=== PATIENT | male | born 1970 | race Caucasian/White ===

== ENCOUNTER 2017-09-14 16:18 | Emergency (ER) | payer BC, SELFPAY ==
--- NOTE | 2017-09-14 16:36 | EDM.PDOC ---
ED HPI GENERAL MEDICAL PROBLEM - General Chief Complaint: Chest Pain Stated Complaint: EKG Time Seen by Provider: 09/14/17 16:27 Source of Information: Reports: Patient History Limitations: Reports: No Limitations - History of Present Illness INITIAL COMMENTS - FREE TEXT/NARRATIVE: History of present illness: []Patient's been having 2 days of sharp pains from the mid back radiating to his right shoulder back 20 minutes in duration not associated with shortness of breath, sweating, lightheadedness or dizziness. Seen a [facility] and had EKG and was sent to the ER for reevaluation under repeat EKG. Review of systems: As per history of present illness and below otherwise all systems reviewed and negative. Past medical history: As per history of present illness and as reviewed below otherwise noncontributory. Surgical history: As per history of present illness and as reviewed below otherwise noncontributory. Social history: No reported history of drug or alcohol abuse. Family history: As per history of present illness and as reviewed below otherwise noncontributory. Physical exam: General: Well developed, well nourished in NAD HEENT: Atraumatic, normocephalic, pupils reactive, negative for conjunctival pallor or scleral icterus, mucous membranes moist, throat clear, neck supple, nontender, trachea midline. Lungs: Clear to auscultation, breath sounds equal bilaterally, chest nontender. Heart: S1S2, regular, negative for clicks, rubs, or JVD. Abdomen: Soft, nondistended, nontender. Negative for masses or hepatosplenomegaly. Negative for costovertebral tenderness. Pelvis: Stable nontender. Genitourinary: Deferred. Rectal: Deferred. Extremities: Atraumatic, negative for cords or calf pain. Neurovascular unremarkable. Neuro: Awake, alert, oriented. Cranial nerves II through XII unremarkable. Cerebellum unremarkable. Motor and sensory unremarkable throughout. Exam nonfocal. Diagnostics: [] Therapeutics: [] Impression: [] Plan: [] Definitive disposition and diagnosis as appropriate pending reevaluation and review of above. - Related Data Allergies Allergy/AdvReac Type Severity Reaction Status Date / Time No Known Allergies Allergy Verified 09/14/17 16:32 Home Meds: Home Meds . [No Known Home Meds] 09/14/17 [History] ED ROS GENERAL - Review of Systems Review Of Systems: See Below (See history of present illness) ED EXAM, GENERAL - Physical Exam Exam: See Below (See history of present illness) Course - Vital Signs Last Recorded V/S: Last Vital Signs Temp 98 F 09/14/17 16:18 Pulse 65 09/14/17 16:18 Resp 18 09/14/17 16:18 BP 116/82 09/14/17 16:18 Pulse Ox 97 09/14/17 16:18 - Orders/Labs/Meds Orders: Active Orders 24 hr Category Date Time Status EKG Documentation Completion [RC] STAT Care 09/14/17 16:41 Active Labs: Laboratory Tests 09/14/17 09/14/17 Range/Units 16:50 16:50 WBC 7.42 (4.0-11.0) K/uL RBC 4.82 (4.50-5.90) M/uL Hgb 15.9 (13.0-17.0) g/dL Hct 45.3 (38.0-50.0) % MCV 94.0 (80.0-98.0) fL MCH 33.0 H (27.0-32.0) pg MCHC 35.1 (31.0-37.0) g/dL RDW Std Deviation 45.0 (28.0-62.0) fl RDW Coeff of Jace 13 (11.0-15.0) % Plt Count 203 (150-400) K/uL MPV 9.80 (7.40-12.00) fL Neut % (Auto) 63.0 (48.0-80.0) % Lymph % (Auto) 26.7 (16.0-40.0) % [place] % (Auto) 9.3 (0.0-15.0) % Eos % (Auto) 0.7 (0.0-7.0) % Baso % (Auto) 0.3 (0.0-1.5) % Neut # (Auto) 4.7 (1.4-5.7) K/uL Lymph # (Auto) 2.0 (0.6-2.4) K/uL [place] # (Auto) 0.7 (0.0-0.8) K/uL Eos # (Auto) 0.1 (0.0-0.7) K/uL Baso # (Auto) 0.0 (0.0-0.1) K/uL Nucleated RBC % 0.0 /100WBC Nucleated RBCs # 0 K/uL Sodium 140 (136-146) mmol/L Potassium 3.9 (3.5-5.1) mmol/L Chloride 111 H (98-110) mmol/L Carbon Dioxide 19 L (21-31) mmol/L BUN 18 (6.0-23.0) mg/dL Creatinine 0.8 (0.6-1.5) mg/dL Est Cr Clr Drug Dosing TNP Estimated GFR (MDRD) > 60.0 ml/min Glucose 107 (60-110) mg/dL Calcium 9.3 (8.8-10.8) mg/dL Total Bilirubin 0.4 (0.1-1.5) mg/dL AST 21 (5-40) IU/L ALT 24 (8-54) IU/L Alkaline Phosphatase 80 (40-150) Troponin I < 0.10 (0.0-0.29) NG/ML Total Protein 7.0 (6.0-8.0) g/dL Albumin 3.9 (3.5-5.0) g/dL Globulin 3.1 (2.0-3.5) g/dL Albumin/Globulin Ratio 1.3 (1.3-2.8) Meds: Medications Discontinued Medications Generic Name Dose Route Start Last Admin Trade Name Freq PRN Reason Stop Dose Admin Aspirin 324 mg 09/14/17 16:42 09/14/17 17:05 Aspirin PO 09/14/17 16:43 Not Given ONETIME ONE Sodium Chloride 10 ml 09/14/17 16:40 Saline Flush FLUSH ASDIRECTED PRN Keep Vein Open Sodium Chloride 2.5 ml 09/14/17 16:40 Saline Flush FLUSH ASDIRECTED PRN Keep Vein Open Departure - Departure Time of Disposition: 17:35 Disposition: Home, Self-Care 01 Condition: Good Clinical Impression: Back pain Qualifiers: Back pain location: thoracic back pain Chronicity: chronic Back pain laterality : midline Qualified Code(s): M54.6 - Pain in thoracic spine; G89.29 - Other chronic pain; G89.29 - Other chronic pain Forms: ED Department Discharge Additional Instructions: The following information is given to patients seen in the emergency department who are being discharged to home. This information is to outline your options for follow-up care. We provide all patients seen in our emergency department with a follow-up referral. The need for follow-up, as well as the timing and circumstances, are variable depending upon the specifics of your emergency department visit. If you don't have a primary care physician on staff, we will provide you with a referral. We always advise you to contact your personal physician following an emergency department visit to inform them of the circumstance of the visit and for follow-up with them and/or the need for any referrals to a consulting specialist. The emergency department will also refer you to a specialist when appropriate. This referral assures that you have the opportunity for follow-up care with a specialist. All of these measure are taken in an effort to provide you with optimal care, which includes your follow-up. Under all circumstances we always encourage you to contact your private physician who remains a resource for coordinating your care. When calling for follow-up care, please make the office aware that this follow-up is from your recent emergency room visit. If for any reason you are refused follow-up, please contact the [facility] Emergency Department at and asked to speak to the emergency department charge nurse. Take a baby aspirin a day follow-up with primary care physician return if symptoms worsen or change [facility] [address] [place] [id number] - My Orders Last 24 Hours: My Active Orders 09/14/17 16:41 EKG Documentation Completion [RC] STAT - Assessment/Plan Last 24 Hours: My Active Orders 09/14/17 16:41 EKG Documentation Completion [RC] STAT
[2017-09-14] MEDS ORDERED: Sodium Chloride 0.9% 2.5 ML Syringe FLUSH PRN (16:40)
[2017-09-14] MEDS ORDERED: Sodium Chloride 0.9% 10 ML Syringe FLUSH PRN (16:40)
[2017-09-14] MEDS ORDERED: Aspirin 81 MG Tab.Chew PO ONE (16:42)
[2017-09-14 17:19] LABS: CHLORIDE,CL 111 mmol/L (98-110); SODIUM,NA 140 mmol/L (136-146)
== END 2017-09-14 17:51 | disposition home or self-care (01) ==
LOC: MW.ED 16:18
DX: M54.6 Pain in thoracic spine (principal); G89.29 Other chronic pain
CPT/HCPCS: 36415; 80053; 84484; 85025; 93005; 99282; 99285-25

== ENCOUNTER 2019-07-04 08:48 | Day surgery (SDC) | payer OTHER ==
[~2019-07-04 08:48] MED LIST: Lactated Ringers 1,000 ML IV SCH; Sodium Chloride 0.9% 10 ML SDV IV PRN; Sodium Chloride 0.9% 10 ML Syringe FLUSH PRN; Sodium Chloride 0.9% 2.5 ML Syringe FLUSH PRN; ceFAZolin 2 GM in Premix Bag 1 BAG IV ONE
--- NOTE | 2019-07-04 10:31 | PCM.PREANE ---
Preanesthetic Assessment - Anesthesia/Transfusion/Family Hx Anesthesia History: Prior Anesthesia Without Reaction Family History of Anesthesia Reaction: No Transfusion History: No Prior Transfusion(s) - Review of Systems General: No Symptoms Pulmonary: No Symptoms Cardiovascular: No Symptoms Gastrointestinal: No Symptoms Neurological: No Symptoms - Physical Assessment Vital Signs: Last Vital Signs Temp 98.2 F 07/04/19 09:10 Pulse 67 07/04/19 09:10 Resp 15 07/04/19 09:10 BP 126/89 07/04/19 09:10 Pulse Ox 99 07/04/19 09:10 Height: 5 ft 11 in Weight: 127.006 kg ASA Class: 3 Mental Status: Alert & Oriented x3 Airway Class: Mallampati = 2 Dentition: Reports: Normal Dentition ROM/Head Extension: Full Lungs: Clear to Auscultation, Normal Respiratory Effort Cardiovascular: Regular Rate, Regular Rhythm - Allergies Allergies/Adverse Reactions: Allergies Allergy/AdvReac Type Severity Reaction Status Date / Time latex Allergy Rash Verified 07/03/19 16:05 - Blood Blood Available: No - Anesthesia Plan Pre-Op Medication Ordered: None - Acknowledgements Anesthesia Type Planned: General Anesthesia Pt an Appropriate Candidate for the Planned Anesthesia: Yes Alternatives and Risks of Anesthesia Discussed w Pt/Guardian: Yes Pt/Guardian Understands and Agrees with Anesthesia Plan: Yes Additional Comments: PMH: aneurysm or L main coronary artery, 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, normal EF, hx of parox afib- on asa, anxiety, migraine PLAN: get PreAnesthesia Questionnaire - Past Health History Medical/Surgical History: Denies Medical/Surgical History HEENT History: Reports: None Cardiovascular History: Reports: None Respiratory History: Reports: None Gastrointestinal History: Reports: None Genitourinary History: Reports: Renal Calculus Neurological History: Reports: Migraines Psychiatric History: Reports: None Endocrine/Metabolic History: Reports: Obesity/BMI 30+ Hematologic History: Reports: None Immunologic History: Reports: None Oncologic (Cancer) History: Reports: None Dermatologic History: Reports: None - Past Surgical History Head Surgeries/Procedures: Reports: None HEENT Surgical History: Reports: Naso-Sinus Surgery Other HEENT Surgeries/Procedures: hx septoplasty Cardiovascular Surgical History: Reports: None Respiratory Surgical History: Reports: None GI Surgical History: Reports: Appendectomy Male Surgical History: Reports: Lithotripsy (ESWL) Endocrine Surgical History: Reports: None Neurological Surgical History: Reports: None Musculoskeletal Surgical History: Reports: Other (See Below) Other Musculoskeletal Surgeries/Procedures:: left radial sx (osteotomy with plate insertion) Oncologic Surgical History: Reports: None Dermatological Surgical History: Reports: None - SUBSTANCE USE Smoking Status *Q: Former Smoker Tobacco Use Within Last Twelve Months: No Recreational Drug Use History: No - HOME MEDS Home Medications: Home Meds ALPRAZolam [Alprazolam] 0.5 mg PO ASDIRECTED PRN 07/03/19 [History] Aspirin [Halfprin] 81 mg PO DAILY 07/03/19 [History] Rizatriptan Benzoate [Rizatriptan] 10 mg SL ASDIRECTED PRN 07/03/19 [History] Tamsulosin HCl 0.4 mg PO DAILY 07/03/19 [History] atorvaSTATin Calcium [Atorvastatin Calcium] 20 mg PO DAILY 07/03/19 [History] - CURRENT (IN HOUSE) MEDS Current Meds: Current Medications Lactated Ringer's (Ringers, Lactated) 1,000 mls @ 100 mls/hr IV ASDIRECTED LOGAN Sodium Chloride (Saline Flush) 10 ml FLUSH ASDIRECTED PRN PRN Reason: Keep Vein Open Sodium Chloride (Saline Flush) 2.5 ml FLUSH ASDIRECTED PRN PRN Reason: Keep Vein Open Sodium Chloride (Normal Saline) 10 ml IV ASDIRECTED PRN PRN Reason: IV Use Discontinued Medications Cefazolin Sodium/Dextrose 2 gm (/ Premix) 50 mls @ 100 mls/hr IV ONCALL ONE Stop: 07/04/19 00:30
[2019-07-04] MEDS ORDERED: Midazolam 1 MG/ML 2 ML SDV ONE (11:01)
[2019-07-04] MEDS ORDERED: fentaNYL 100 MCG/2 ML SDV ONE (11:02)
[2019-07-04] MEDS ORDERED: Propofol 200 MG/20 ML SDV ONE (11:02)
[2019-07-04] MEDS ORDERED: Lidocaine 2% 5 ML SDV ONE (11:02)
[2019-07-04] MEDS ORDERED: Rocuronium 100 MG/10 ML Syringe ONE (11:03)
[2019-07-04] MEDS ORDERED: ceFAZolin/Dextrose,Iso-Osmotic 2 GM/50 ML Duplex Bag IV ONE (11:07)
[2019-07-04] MEDS ORDERED: Iopamidol 408 MG/ML 50 ML SDV ONE (11:14)
[2019-07-04] MEDS ORDERED: Ondansetron 4 MG/2 ML SDV ONE (11:57)
[2019-07-04] MEDS ORDERED: Ketorolac 30 MG/ML SDV ONE (11:58)
[2019-07-04] MEDS ORDERED: Sugammadex Sodium 200 MG/2 ML VIAL ONE ×2 (11:59→13:05)
[2019-07-04] MEDS ORDERED: Albuterol 0.083% 2.5 MG/3 ML Neb Soln NEB PRN (13:02)
[2019-07-04] MEDS ORDERED: Atropine 0.1 MG/ML 10 ML Syringe IVPUSH PRN ×2 (13:02)
[2019-07-04] MEDS ORDERED: fentaNYL 100 MCG/2 ML SDV IVPUSH PRN (13:02)
[2019-07-04] MEDS ORDERED: 50% Dextrose in Water 50 ML Syringe IVPUSH PRN (13:02)
[2019-07-04] MEDS ORDERED: EPINEPHrine 1:10,000 1 MG/10 ML Syringe IVPUSH PRN (13:02)
[2019-07-04] MEDS ORDERED: Naloxone 0.4 MG/ML Syringe IVPUSH PRN (13:02)
[2019-07-04] MEDS ORDERED: ALPRAZolam 0.5 MG Tab PO PRN (13:07)
[2019-07-04] MEDS ORDERED: Rizatriptan Benzoate [Rizatriptan] 10 MG PO PRN (13:07)
--- NOTE | 2019-07-04 13:34 | PCM.POSTAN ---
POST ANESTHESIA ASSESSMENT - MENTAL STATUS Mental Status: Alert, Oriented - VITAL SIGNS Vital Signs: Last Vital Signs Temp 97.9 F 07/04/19 13:10 Pulse 72 07/04/19 13:25 Resp 16 07/04/19 13:25 BP 135/73 07/04/19 13:25 Pulse Ox 95 07/04/19 13:25 - RESPIRATORY Respiratory Status: Respiratory Rate WNL, Airway Patent, O2 Saturation Stable - CARDIOVASCULAR CV Status: Pulse Rate WNL, Blood Pressure Stable - GASTROINTESTINAL GI Status: No Symptoms - POST OP HYDRATION Hydration Status: Adequate & Stable
--- NOTE | 2019-07-04 13:34 | PCM48HPAN ---
Post Anesthesia Note - EVALUATION WITHIN 48HRS OF ANESTHETIC Vital Signs in Normal Range: Yes Patient Participated in Evaluation: Yes Respiratory Function Stable: Yes Airway Patent: Yes Cardiovascular Function Stable: Yes Hydration Status Stable: Yes Pain Control Satisfactory: Yes Nausea and Vomiting Control Satisfactory: Yes Mental Status Recovered: Yes Vital Signs: Last Vital Signs Temp 97.9 F 07/04/19 13:10 Pulse 72 07/04/19 13:25 Resp 16 07/04/19 13:25 BP 135/73 07/04/19 13:25 Pulse Ox 95 07/04/19 13:25
--- NOTE | 2019-07-04 14:28 | OR ---
SURGEON: Armando Avery M.D. DATE OF PROCEDURE: 07/04/2019 PREOPERATIVE DIAGNOSIS: An 8 mm right upper ureteral stone. POSTOPERATIVE DIAGNOSIS: An 8 mm right upper ureteral stone. OPERATIONS: Ureteroscopy, laser lithotripsy, and double-J stent placement. DESCRIPTION OF PROCEDURE: The patient was given general anesthesia, placed in dorsal lithotomy position, prepped and draped in sterile drapes. Cystourethroscopy was done that was normal. A Glidewire was advanced alongside the stone all the way up into the right renal pelvis. The guidewire was then also advanced in the right ureter up to the stone. The lower ureter was dilated using the UroMax II balloon dilator to approximately 15-[place]. The flexible ureteroscope was advanced over the guidewire, which was then removed. The stone was visualized and broken up into a multitude of smaller pieces. At that point, I decided to use the rigid ureteroscope to have better visualization. I was able to get the rigid ureteroscope all the way up to the stone. Further breaking the stone with the laser was accomplished. However, the flow through the rigid ureteroscope pushed the stone fragments back up into the pelvis. With that done, these small pieces were of a size that will pass. The guidewire was put back in. The Glidewire was removed and a 6-[place] 26 centimeter double-J stent was placed over the guidewire. Position was confirmed on fluoroscopy. The bladder was emptied and the string at the end of the stent was tied to both side of the penis. PLAN: I will see the patient in my office tomorrow to instruct him to take the stent out at home. He will be flying back home to [place] this coming Tuesday. TISH / SID /[id number]
[2019-07-05] MEDS ORDERED: Aspirin 81 MG Tab.EC PO SCH (09:00)
[2019-07-05] MEDS ORDERED: Tamsulosin 0.4 MG Cap.ER PO SCH (09:00)
[2019-07-05] MEDS ORDERED: atorvaSTATin 20 MG Tab PO SCH (09:00)
--- NOTE | 2019-07-05 14:28 | CR ---
Fluoroscopy for laser lithotripsy Single fluoroscopic spot view was obtained which shows proximal end of an uncoiled right ureteral stent. No additional abnormality is appreciated. Impression: Procedural study show an uncoiled proximal right ureteral stent. Diagnostic code #2 MTDD
== END 2019-07-04 15:00 | disposition home or self-care (01) ==
LOC: MW.SDS 08:48
PROVIDERS: ATTEND Urology
DX: N20.1 Calculus of ureter (principal); I48.0 Paroxysmal atrial fibrillation; I25.41 Coronary artery aneurysm; F41.9 Anxiety disorder, unspecified; G43.909 Migraine, unspecified, not intractable, without status migrainosus; Z91.040 Latex allergy status; Z87.891 Personal history of nicotine dependence; Z79.82 Long term (current) use of aspirin; Z79.899 Other long term (current) drug therapy
CPT/HCPCS: 52356; J0690; J1885; J2001; J2250; J2405; J2704; J3010; J3490; J7120; Q9966

== ENCOUNTER 2019-09-12 09:30 | Emergency (ER) | payer OTHER ==
--- NOTE | 2019-09-12 10:17 | EDM.PDOC ---
ED HPI GENERAL MEDICAL PROBLEM - General Chief Complaint: Respiratory Problem Stated Complaint: COLD Time Seen by Provider: 09/12/19 09:53 Source of Information: Reports: Patient History Limitations: Reports: No Limitations - History of Present Illness INITIAL COMMENTS - FREE TEXT/NARRATIVE: HISTORY AND PHYSICAL: History of present illness: Patient is a 49-year-old male who presents to the ED today with concern of a sore throat, nasal congestion, and cough over the last 2 days. Patient states that his daughter has been sick with an upper respiratory infection and he does not have a primary care provider here so thought he should come and be evaluated as well. Patient states he has not taken anything for her symptoms. Patient denies any other symptoms or concerns. Patient denies fever, chills, chest pain, shortness of breath. Denies headache, neck stiff ness, change in vision, syncope, or near syncope. Denies nausea, vomiting, abdominal pain, diarrhea, constipation, or dysuria. Has not noted any blood in urine or stool. Patient has been eating and drinking appropriately. Review of systems: As per history of present illness and below otherwise all systems reviewed and negative. Past medical history: As per history of present illness and as reviewed below otherwise noncontributory. Surgical history: As per history of present illness and as reviewed below otherwise noncontributory. Social history: See social history for further information Family history: As per history of present illness and as reviewed below otherwise noncontributory. Physical exam: General: Patient is alert, oriented, and in no acute distress. Patient sitting comfortably on exam table. HEENT: Atraumatic, normocephalic, pupils equal and reactive bilaterally, negative for conjunctival pallor or scleral icterus, mucous membranes moist, TMs normal bilaterally, throat is mildly erythematous and tonsils are absent, uvula midline, neck supple, nontender, trachea midline. No drooling or trismus noted. No meningeal signs. No hot potato voice noted. Lungs: Clear to auscultation, breath sounds equal bilaterally, chest nontender. Bilateral nasal congestion. Heart: S1S2, regular rate and rhythm without overt murmur Abdomen: Soft, nondistended, nontender. Negative for masses or hepatosplenomegaly. Negative for costovertebral tenderness. Pelvis: Stable nontender. Genitourinary: Deferred. Rectal: Deferred. Skin: Intact, warm, dry. No lesions or rashes noted. Extremities: Atraumatic, negative for cords or calf pain. Neurovascular unremarkable. Neuro: Awake, alert, oriented. Cranial nerves II through XII unremarkable. Cerebellum unremarkable. Motor and sensory unremarkable throughout. Exam nonfocal. Notes: Discussed the importance for follow-up with a primary care provider. Voices understanding and is agreeable to plan of care. Denies any further questions or concerns at this time. Diagnostics: Influenza, Strep (offered labwork and CXR but patient declines) Therapeutics: None Prescription: None Impression: Upper respiratory infection Cough Plan: 1. You can alternate ibuprofen and Tylenol as directed for pain and discomfort. 2. Follow-up with your primary care provider as discussed. Return to the ED as needed and as discussed. Definitive disposition and diagnosis as appropriate pending reevaluation and review of above. - Related Data Allergies Allergy/AdvReac Type Severity Reaction Status Date / Time latex Allergy Rash Verified 09/12/19 09:41 Home Meds: Home Meds ALPRAZolam [Alprazolam] 0.5 mg PO ASDIRECTED PRN 07/03/19 [History] Aspirin [Halfprin] 81 mg PO DAILY 07/03/19 [History] Rizatriptan Benzoate [Rizatriptan] 10 mg SL ASDIRECTED PRN 07/03/19 [History] Tamsulosin HCl 0.4 mg PO DAILY 07/03/19 [History] atorvaSTATin Calcium [Atorvastatin Calcium] 20 mg PO DAILY 07/03/19 [History] Past Medical History - Past Health History Medical/Surgical History: Denies Medical/Surgical History HEENT History: Reports: None Cardiovascular History: Reports: None Respiratory History: Reports: None Gastrointestinal History: Reports: None Genitourinary History: Reports: Renal Calculus Neurological History: Reports: Migraines Psychiatric History: Reports: None Endocrine/Metabolic History: Reports: Obesity/BMI 30+ Hematologic History: Reports: None Immunologic History: Reports: None Oncologic (Cancer) History: Reports: None Dermatologic History: Reports: None - Past Surgical History Head Surgeries/Procedures: Reports: None HEENT Surgical History: Reports: Naso-Sinus Surgery Other HEENT Surgeries/Procedures: hx septoplasty Cardiovascular Surgical History: Reports: None Respiratory Surgical History: Reports: None GI Surgical History: Reports: Appendectomy Male Surgical History: Reports: Lithotripsy (ESWL) Endocrine Surgical History: Reports: None Neurological Surgical History: Reports: None Musculoskeletal Surgical History: Reports: Other (See Below) Other Musculoskeletal Surgeries/Procedures:: left radial sx (osteotomy with plate insertion) Oncologic Surgical History: Reports: None Dermatological Surgical History: Reports: None Social & Family History - Family History Family Medical History: Noncontributory - Tobacco Use Smoking Status *Q: Never Smoker - Recreational Drug Use Recreational Drug Use: No ED ROS GENERAL - Review of Systems Review Of Systems: Comprehensive ROS is negative, except as noted in HPI. ED EXAM, GENERAL - Physical Exam Exam: See Below (See dictation) Course - Vital Signs Last Recorded V/S: Last Vital Signs Temp 96.6 F 09/12/19 09:40 Pulse 77 09/12/19 09:40 Resp 18 09/12/19 09:40 BP 135/91 H 09/12/19 09:40 Pulse Ox 96 09/12/19 09:40 - Orders/Labs/Meds Orders: Active Orders 24 hr Category Date Time Status CULTURE STREP A CONFIRMATION [] Stat Lab 09/12/19 10:10 Results STREP SCRN A RAPID W CULT CONF [RM] Stat Lab 09/12/19 10:10 Results Departure - Departure Time of Disposition: 10:51 Disposition: Home, Self-Care 01 Clinical Impression: Cough Upper respiratory infection Qualifiers: URI type: unspecified URI Qualified Code(s): J06.9 - Acute upper respiratory infection, unspecified - Discharge Information Referrals: Shailesh Lagunas MD [Primary Care Provider] - Forms: ED Department Discharge Additional Instructions: The following information is given to patients seen in the emergency department who are being discharged to home. This information is to outline your options for follow-up care. We provide all patients seen in our emergency department with a follow-up referral. The need for follow-up, as well as the timing and circumstances, are variable depending upon the specifics of your emergency department visit. If you don't have a primary care physician on staff, we will provide you with a referral. We always advise you to contact your personal physician following an emergency department visit to inform them of the circumstance of the visit and for follow-up with them and/or the need for any referrals to a consulting specialist. The emergency department will also refer you to a specialist when appropriate. This referral assures that you have the opportunity for follow-up care with a specialist. All of these measure are taken in an effort to provide you with optimal care, which includes your follow-up. Under all circumstances we always encourage you to contact your private physician who remains a resource for coordinating your care. When calling for follow-up care, please make the office aware that this follow-up is from your recent emergency room visit. If for any reason you are refused follow-up, please contact the [facility] Emergency Department at and asked to speak to the emergency department charge nurse. [facility] [address] [place] [id number] [facility] [address] [place] [phone] 1. You can alternate ibuprofen and Tylenol as directed for pain and discomfort. 2. Follow-up with your primary care provider as discussed. Return to the ED as needed and as discussed. - My Orders Last 24 Hours: My Active Orders 09/12/19 10:10 CULTURE STREP A CONFIRMATION [RM] Stat STREP SCRN A RAPID W CULT CONF [RM] Stat - Assessment/Plan Last 24 Hours: My Active Orders 09/12/19 10:10 CULTURE STREP A CONFIRMATION [RM] Stat STREP SCRN A RAPID W CULT CONF [RM] Stat
== END 2019-09-12 11:06 | disposition home or self-care (01) ==
LOC: MW.ED 09:30
DX: J06.9 Acute upper respiratory infection, unspecified (principal); G43.909 Migraine, unspecified, not intractable, without status migrainosus; E66.9 Obesity, unspecified; Z68.39 Body mass index [BMI] 39.0-39.9, adult; Z91.040 Latex allergy status; Z79.82 Long term (current) use of aspirin; Z79.899 Other long term (current) drug therapy
CPT/HCPCS: 87081; 87804; 87880-QW; 99283

== ENCOUNTER 2019-10-22 09:02 | Emergency (ER) | payer BC, OTHER ==
--- NOTE | 2019-10-22 10:29 | EDM.PDOC ---
ED HPI GENERAL MEDICAL PROBLEM - General Chief Complaint: Flank Pain Stated Complaint: RT SIDE PAIN Time Seen by Provider: 10/22/19 10:07 Source of Information: Reports: Patient History Limitations: Reports: No Limitations - History of Present Illness INITIAL COMMENTS - FREE TEXT/NARRATIVE: HISTORY AND PHYSICAL: History of present illness: Patient is a 49-year-old male who presents to the emergency room today with complaints of right lower abdominal pain over the past few days. He states he has a history of kidney stones and is concerned he may have a kidney stone at this time. He states he will be going to a new location in a few days and "wanted to get it taken care of" before he did not have access to an emergency room or primary care provider. He describes the pain as mild but feels similar to previous kidney stones. He has noted a few loose stools over the past 2 days. Patient denies any fever, chills, headache, change in vision, syncope or near syncope. Denies any chest pain, back pain, shortness of breath or cough. Denies any nausea, vomiting, diarrhea, or dysuria. Has not noted any blood in urine or stool. Denies any testicular pain, redness or swelling. Patient has been eating and drinking appropriately. Review of systems: As per history of present illness and below otherwise all systems reviewed and negative. Past medical history: As per history of present illness and as reviewed below otherwise noncontributory. Surgical history: As per history of present illness and as reviewed below otherwise noncontributory. Social history: See social history for further information Family history: As per history of present illness and as reviewed below otherwise noncontributory. Physical exam: General: Well-developed and well-nourished 49-year-old male. Alert and oriented. Nontoxic-appearing and in no acute distress. HEENT: Atraumatic, normocephalic, pupils equal and reactive bilaterally, negative for conjunctival pallor or scleral icterus, mucous membranes moist, TMs normal bilaterally, throat clear, neck supple, nontender, trachea midline. No drooling or trismus noted. No meningeal signs. No hot potato voice noted. Lungs: Clear to auscultation, breath sounds equal bilaterally, chest nontender. Heart: S1S2, regular rate and rhythm without overt murmur Abdomen: Soft, nondistended, nontender. Negative for masses or hepatosplenomegaly. Negative for costovertebral tenderness. Pelvis: Stable nontender. Skin: Intact, warm, dry. No lesions or rashes noted. Extremities: Atraumatic, moves all extremities per self without difficulty or deficits, negative for cords or calf pain. Neurovascular unremarkable. Neuro: Awake, alert, oriented. Cranial nerves II through XII unremarkable. Cerebellum unremarkable. Motor and sensory unremarkable throughout. Exam nonfocal. Notes: Patient reports that he has seen Dr. Marte several times for his previous kidney stones, stating he had lithotripsy done approximately 2 months ago. He states he "always has blood showing up in my urine". He declines wanting any type of pain medication as he describes it as mild. He is agreeable to imaging and lab work at this time. Lab work is unremarkable. CT shows multiple small cysts within the liver, calcified granulomas in the spleen. No kidney stones are noted. All these findings were shared with the patient. We discussed the need for follow-up with primary care. Supportive care measures were reviewed and discussed. Voices understanding and is agreeable to plan of care. Denies any further questions or concerns at this time. Diagnostics: CBC, CMP, UA, CT abd/pelvis Therapeutics: Declines Prescription: None Impression: Abdominal pain, right lower quadrant Plan: 1. Please use Tylenol and/or Ibuprofen as needed for pain and fever management. 2. Get plenty of Rest. Encourage fluids to prevent dehydration. 3. Please follow up with your primary care provider. Return to the ED as needed as discussed. Definitive disposition and diagnosis as appropriate pending reevaluation and review of above. Duration: Day(s): Location: Reports: Abdomen - Related Data Allergies Allergy/AdvReac Type Severity Reaction Status Date / Time latex Allergy Rash Verified 10/22/19 09:25 Home Meds: Home Meds ALPRAZolam [Alprazolam] 0.5 mg PO ASDIRECTED PRN 07/03/19 [History] Aspirin [Halfprin] 81 mg PO DAILY 07/03/19 [History] Rizatriptan Benzoate [Rizatriptan] 10 mg SL ASDIRECTED PRN 07/03/19 [History] Tamsulosin HCl 0.4 mg PO DAILY 07/03/19 [History] atorvaSTATin Calcium [Atorvastatin Calcium] 20 mg PO DAILY 07/03/19 [History] Past Medical History - Past Health History Medical/Surgical History: Denies Medical/Surgical History HEENT History: Reports: None Cardiovascular History: Reports: None Respiratory History: Reports: None Gastrointestinal History: Reports: None Genitourinary History: Reports: Renal Calculus Neurological History: Reports: Migraines Psychiatric History: Reports: None Endocrine/Metabolic History: Reports: Obesity/BMI 30+ Hematologic History: Reports: None Immunologic History: Reports: None Oncologic (Cancer) History: Reports: None Dermatologic History: Reports: None - Infectious Disease History Infectious Disease History: Reports: None - Past Surgical History Head Surgeries/Procedures: Reports: None HEENT Surgical History: Reports: Naso-Sinus Surgery Other HEENT Surgeries/Procedures: hx septoplasty Cardiovascular Surgical History: Reports: None Respiratory Surgical History: Reports: None GI Surgical History: Reports: Appendectomy Male Surgical History: Reports: Lithotripsy (ESWL) Endocrine Surgical History: Reports: None Neurological Surgical History: Reports: None Musculoskeletal Surgical History: Reports: Other (See Below) Other Musculoskeletal Surgeries/Procedures:: left radial sx (osteotomy with plate insertion) Oncologic Surgical History: Reports: None Dermatological Surgical History: Reports: None Social & Family History - Family History Family Medical History: Noncontributory - Tobacco Use Smoking Status *Q: Never Smoker - Caffeine Use Caffeine Use: Reports: None - Recreational Drug Use Recreational Drug Use: No ED ROS GENERAL - Review of Systems Review Of Systems: Comprehensive ROS is negative, except as noted in HPI. ED EXAM, RENAL/ - Physical Exam Exam: See Below (See dictation) Course - Vital Signs Last Recorded V/S: Last Vital Signs Temp 97.2 F 10/22/19 09:25 Pulse 78 10/22/19 09:25 Resp 16 10/22/19 09:25 BP 135/89 10/22/19 09:25 Pulse Ox 96 10/22/19 09:25 - Orders/Labs/Meds Labs: Laboratory Tests 10/22/19 10/22/19 10/22/19 Range/Units 09:35 10:17 10:17 WBC 6.46 (4.0-11.0) K/uL RBC 5.01 (4.50-5.90) M/uL Hgb 16.2 (13.0-17.0) g/dL Hct 45.9 (38.0-50.0) % MCV 91.6 (80.0-98.0) fL MCH 32.3 H (27.0-32.0) pg MCHC 35.3 (31.0-37.0) g/dL RDW Std Deviation 43.4 (28.0-62.0) fl RDW Coeff of Jace 13 (11.0-15.0) % Plt Count 179 (150-400) K/uL MPV 10.10 (7.40-12.00) fL Neut % (Auto) 59.1 (48.0-80.0) % Lymph % (Auto) 26.9 (16.0-40.0) % [place] % (Auto) 13.3 (0.0-15.0) % Eos % (Auto) 0.5 (0.0-7.0) % Baso % (Auto) 0.2 (0.0-1.5) % Neut # (Auto) 3.8 (1.4-5.7) K/uL Lymph # (Auto) 1.7 (0.6-2.4) K/uL [place] # (Auto) 0.9 H (0.0-0.8) K/uL Eos # (Auto) 0.0 (0.0-0.7) K/uL Baso # (Auto) 0.0 (0.0-0.1) K/uL Nucleated RBC % 0.0 /100WBC Nucleated RBCs # 0 K/uL Sodium 139 (136-148) mmol/L Potassium 4.0 (3.5-5.1) mmol/L Chloride 105 (98-107) mmol/L Carbon Dioxide 25.0 (21.0-32.0) mmol/L BUN 21 H (7.0-18.0) mg/dL Creatinine 0.9 (0.8-1.3) mg/dL Est Cr Clr Drug Dosing 103.42 mL/min Estimated GFR (MDRD) > 60.0 ml/min Glucose 99 (74-106) mg/dL Calcium 9.0 (8.5-10.1) mg/dL Total Bilirubin 0.6 (0.2-1.0) mg/dL AST 21 (15-37) IU/L ALT 31 (14-63) IU/L Alkaline Phosphatase 98 (46-116) U/L Total Protein 7.3 (6.4-8.2) g/dL Albumin 3.6 (3.4-5.0) g/dL Globulin 3.7 (2.6-4.0) g/dL Albumin/Globulin Ratio 1.0 (0.9-1.6) Urine Color YELLOW Urine Appearance HAZY Urine pH 5.5 (5.0-8.0) Ur Specific Vina >= 1.030 (1.001-1.035) Urine Protein TRACE H (NEGATIVE) mg/dL Urine Glucose (UA) NEGATIVE (NEGATIVE) mg/dL Urine Ketones NEGATIVE (NEGATIVE) mg/dL Urine Occult Blood MODERATE H (NEGATIVE) Urine Nitrite NEGATIVE (NEGATIVE) Urine Bilirubin NEGATIVE (NEGATIVE) Urine Urobilinogen 0.2 (<2.0) EU/dL Ur Leukocyte Esterase NEGATIVE (NEGATIVE) Urine RBC 2-4 (0-2/HPF) Urine WBC 0-2 (0-5/HPF) Ur Epithelial Cells OCCASIONAL (NONE-FEW) Urine Bacteria RARE (NEGATIVE) Urine Mucus LIGHT (NONE-MOD) Departure - Departure Time of Disposition: 11:50 Disposition: Home, Self-Care 01 Clinical Impression: Abdominal pain Qualifiers: Abdominal location: right lower quadrant Qualified Code(s): R10.31 - Right lower quadrant pain - Discharge Information Instructions: Abdominal Pain, Adult Referrals: PCP,Not In Area [Primary Care Provider] - Forms: ED Department Discharge Additional Instructions: The following information is given to patients seen in the emergency department who are being discharged to home. This information is to outline your options for follow-up care. We provide all patients seen in our emergency department with a follow-up referral. The need for follow-up, as well as the timing and circumstances, are variable depending upon the specifics of your emergency department visit. If you don't have a primary care physician on staff, we will provide you with a referral. We always advise you to contact your personal physician following an emergency department visit to inform them of the circumstance of the visit and for follow-up with them and/or the need for any referrals to a consulting specialist. The emergency department will also refer you to a specialist when appropriate. This referral assures that you have the opportunity for follow-up care with a specialist. All of these measure are taken in an effort to provide you with optimal care, which includes your follow-up. Under all circumstances we always encourage you to contact your private physician who remains a resource for coordinating your care. When calling for follow-up care, please make the office aware that this follow-up is from your recent emergency room visit. If for any reason you are refused follow-up, please contact the [facility] Emergency Department at and asked to speak to the emergency department charge nurse. [facility] [address] [place] [id number] [facility] [address] [place] [id number] 1. Please use Tylenol and/or Ibuprofen as needed for pain and fever management. 2. Get plenty of Rest. Encourage fluids to prevent dehydration. 3. Please follow up with your primary care provider. Return to the ED as needed as discussed. Sepsis Event Note - Evaluation Sepsis Screening Result: No Definite Risk - Focused Exam Vital Signs: Vital Signs Temp Pulse Resp BP Pulse Ox 10/22/19 09:25 97.2 F 78 16 135/89 96 Date Exam was Performed: 10/22/19 Time Exam was Performed: 11:49
[2019-10-22 11:09] LABS: BLOOD UREA NITROGEN,BUN 21 mg/dL (7.0-18.0); CHLORIDE,CL 105 mmol/L (98-107); GLUCOSE RANDOM 99 mg/dL (74-106); SODIUM,NA 139 mmol/L (136-148)
--- NOTE | 2019-10-22 11:45 | CT ---
CT abdomen and pelvis Technique: Multiple axial sections were obtained from above the dome of the diaphragm inferiorly through the pubic symphysis. Intravenous contrast and oral contrast has not been given. Comparison: Prior abdominal x-ray of 08/02/19. Findings: Visualized lung bases show nothing acute. Multiple small low density findings are seen within the right and left lobes of the liver. Larger abnormalities have Hounsfield unit measurements of cysts and findings are felt compatible with multiple small liver cysts. Largest cyst measures 2.1 cm. Spleen shows calcifications compatible with calcified granulomas. Spleen size is normal. Adrenal glands show no nodule. Pancreas is within normal limits. Kidneys show no abnormal calcifications. No ureteral dilatation or ureteral stone is seen. Aorta shows no aneurysm. No retroperitoneal adenopathy or mesenteric abnormalities are seen. Appendix not visualized with certainty. No pelvic mass or adenopathy is seen. Minimal diverticulosis is seen within the sigmoid colon without findings of diverticulitis. No free fluid or inflammatory change is appreciated. Bone window settings were reviewed which shows no acute osseous finding. Impression: 1. Multiple small cysts within the liver. 2. Calcified granulomas within the spleen. 3. No renal calculi, ureteral dilatation or ureteral stone is seen. 3. Other findings believed to be incidental and nonacute as described above. Diagnostic code #2 This report was dictated in Mountain Standard Time
== END 2019-10-22 12:03 | disposition home or self-care (01) ==
LOC: MW.ED 09:02
DX: R10.31 Right lower quadrant pain (principal); E66.9 Obesity, unspecified; Z68.41 Body mass index [BMI] 40.0-44.9, adult; Z79.82 Long term (current) use of aspirin; Z91.040 Latex allergy status
CPT/HCPCS: 36415; 74176; 74176-26; 80053; 81001; 85025; 99283; 99284-25

== ENCOUNTER 2020-01-03 12:34 | Emergency (ER) | payer BC, OTHER ==
--- NOTE | 2020-01-03 12:55 | EDM.PDOC ---
ED HPI GENERAL MEDICAL PROBLEM - General Chief Complaint: ENT Problem Stated Complaint: EAR PAIN Time Seen by Provider: 01/03/20 12:47 Source of Information: Reports: Patient History Limitations: Reports: No Limitations - History of Present Illness INITIAL COMMENTS - FREE TEXT/NARRATIVE: HISTORY AND PHYSICAL: History of present illness: Patient is a 49-year-old male presents to the ED with complaint of left ear pain. Patient states for the past couple of weeks he has had nasal congestion and sinus pressure. He reports pain and muffled hearing in his left ear for the past couple of days. He denies fevers, chills, chest pain, cough, shortness of breath. Review of systems: As per history of present illness and below otherwise all systems reviewed and negative. Past medical history: As per history of present illness and as reviewed below otherwise noncontributory. Surgical history: As per history of present illness and as reviewed below otherwise noncontributory. Social history: No reported history of drug or alcohol abuse. Family history: As per history of present illness and as reviewed below otherwise noncontributory. Physical exam: General: Patient sitting comfortably in no acute distress and nontoxic appearing HEENT: TMs with serous effusion bilaterally. Maxillary sinus tenderness to palpation. Atraumatic, normocephalic, pupils reactive, negative for conjunctival pallor or scleral icterus, mucous membranes moist, throat clear, neck supple, nontender, trachea midline. No meningeal signs. Lungs: Clear to auscultation, breath sounds equal bilaterally, chest nontender. Heart: S1S2, regular, negative for clicks, rubs, or overt murmur. Abdomen: Soft, nondistended, nontender. Negative for masses or hepatosplenomegaly. Negative for costovertebral tenderness. No rigidity, rebound , guarding. Pelvis: Stable nontender. Genitourinary: Deferred. Rectal: Deferred. Extremities: Atraumatic, negative for cords or calf pain. Neurovascular unremarkable. Neuro: Awake, alert, oriented. Cranial nerves II through XII unremarkable. Cerebellum unremarkable. Motor and sensory unremarkable throughout. Exam nonfocal. Notes: Diagnostics: none Therapeutics: none Prescriptions: Augmentin Impression: Acute sinusitis Plan: Take antibiotic as instructed Use Flonase and Zyrtec as discussed Follow-up with primary care provider Return to ED as needed as discussed Definitive disposition and diagnosis as appropriate pending reevaluation and review of above. left ear Pain Score (Numeric/FACES): 4 - Related Data Allergies Allergy/AdvReac Type Severity Reaction Status Date / Time latex Allergy Rash Verified 10/22/19 09:25 Home Meds: Home Meds Aspirin [Halfprin] 81 mg PO DAILY 07/03/19 [History] atorvaSTATin Calcium [Atorvastatin Calcium] 20 mg PO DAILY 07/03/19 [History] Amoxicillin/Potassium Clav [Augmentin 875-125 Tablet] 1 each PO BID 7 Days #14 tablet 01/03/20 [Rx] Past Medical History - Past Health History Medical/Surgical History: Denies Medical/Surgical History HEENT History: Reports: None Cardiovascular History: Reports: High Cholesterol Respiratory History: Reports: None Gastrointestinal History: Reports: None Genitourinary History: Reports: Renal Calculus Neurological History: Reports: Migraines Psychiatric History: Reports: None Endocrine/Metabolic History: Reports: Obesity/BMI 30+ Hematologic History: Reports: None Immunologic History: Reports: None Oncologic (Cancer) History: Reports: None Dermatologic History: Reports: None - Infectious Disease History Infectious Disease History: Reports: Chicken Pox, Measles, Mumps - Past Surgical History Head Surgeries/Procedures: Reports: None HEENT Surgical History: Reports: Naso-Sinus Surgery Other HEENT Surgeries/Procedures: hx septoplasty Cardiovascular Surgical History: Reports: None Respiratory Surgical History: Reports: None GI Surgical History: Reports: Appendectomy Male Surgical History: Reports: Lithotripsy (ESWL) Endocrine Surgical History: Reports: None Neurological Surgical History: Reports: None Musculoskeletal Surgical History: Reports: Other (See Below) Other Musculoskeletal Surgeries/Procedures:: left radial sx (osteotomy with plate insertion) Oncologic Surgical History: Reports: None Dermatological Surgical History: Reports: None Social & Family History - Family History Family Medical History: Noncontributory - Tobacco Use Smoking Status *Q: Never Smoker - Caffeine Use Caffeine Use: Reports: None - Recreational Drug Use Recreational Drug Use: No ED ROS ENT - Review of Systems Review Of Systems: Comprehensive ROS is negative, except as noted in HPI. ED EXAM, ENT - Physical Exam Exam: See Below (see dictation) Course - Vital Signs Last Recorded V/S: Last Vital Signs Temp 97.7 F 01/03/20 12:40 Pulse 81 01/03/20 13:15 Resp 16 01/03/20 13:15 BP 114/82 01/03/20 13:15 Pulse Ox 97 01/03/20 13:15 Departure - Departure Time of Disposition: 13:01 Disposition: Home, Self-Care 01 Condition: Good Clinical Impression: Acute sinusitis - Discharge Information Prescriptions: Amoxicillin/Potassium Clav [Augmentin 875-125 Tablet] 1 each PO BID 7 Days #14 tablet Instructions: Sinusitis, Adult, [id number] Referrals: PCP,None [Primary Care Provider] - Forms: ED Department Discharge Additional Instructions: The following information is given to patients seen in the emergency department who are being discharged to home. This information is to outline your options for follow-up care. We provide all patients seen in our emergency department with a follow-up referral. The need for follow-up, as well as the timing and circumstances, are variable depending upon the specifics of your emergency department visit. If you don't have a primary care physician on staff, we will provide you with a referral. We always advise you to contact your personal physician following an emergency department visit to inform them of the circumstance of the visit and for follow-up with them and/or the need for any referrals to a consulting specialist. The emergency department will also refer you to a specialist when appropriate. This referral assures that you have the opportunity for follow-up care with a specialist. All of these measure are taken in an effort to provide you with optimal care, which includes your follow-up. Under all circumstances we always encourage you to contact your private physician who remains a resource for coordinating your care. When calling for follow-up care, please make the office aware that this follow-up is from your recent emergency room visit. If for any reason you are refused follow-up, please contact the [facility] Emergency Department at and asked to speak to the emergency department charge nurse. [facility] [address] [place] [id number] [facility] [address] [place] [address] Take antibiotic as instructed Use Flonase and Zyrtec as discussed Follow-up with primary care provider Return to ED as needed as discussed Sepsis Event Note - Evaluation Sepsis Screening Result: No Definite Risk - Focused Exam Vital Signs: Vital Signs Temp Pulse Resp BP Pulse Ox 01/03/20 13:15 81 16 114/82 97 01/03/20 12:40 97.7 F 78 16 115/80 97 Date Exam was Performed: 01/03/20 Time Exam was Performed: 13:26
== END 2020-01-03 13:15 | disposition home or self-care (01) ==
LOC: MW.ED 12:34
DX: J01.90 Acute sinusitis, unspecified (principal); E78.00 Pure hypercholesterolemia, unspecified; E66.9 Obesity, unspecified; Z68.41 Body mass index [BMI] 40.0-44.9, adult; Z79.82 Long term (current) use of aspirin; Z79.899 Other long term (current) drug therapy; Z91.040 Latex allergy status
CPT/HCPCS: 99283